=== PATIENT | female | born 1940 | race Caucasian/White ===

== ENCOUNTER → 2017-07-03 | Day surgery (SDC) | payer OTHER ==
--- NOTE | 2017-07-04 15:59 | PATH ---
Surgical Pathology Report Patient Name: MIMI BARRIOS [facility]. Rec. #: [id number] /Age/Gender: 1940 (Age: 77) / F Account: [id number] Location: [facility] Taken: 07/03/2017 Received: 07/03/2017 Reported: 07/04/2017 Physicians: Vandana Rodriguez M.D. Specimen(s) Received A: RIGHT BREAST SPECIMEN WITH CALCIFICATIONS B: RIGHT BREAST SPECIMEN WITHOUT CALCIFICATIONS Clinical History Nonpalpable lesion Mammographic findings: Microcalcification, suspicious Final Diagnosis A. BREAST, RIGHT, WITH CALCIFICATIONS, STEREOTACTIC BIOPSY: ATYPICAL DUCTAL HYPERPLASIA (ADH) AND FIBROCYSTIC CHANGES INCLUDING CYSTIC APOCRINE METAPLASIA AND USUAL DUCTAL HYPERPLASIA (UDH) WITH ASSOCIATED CALCIFICATIONS. B. BREAST, RIGHT, WITHOUT CALCIFICATIONS, STEREOTACTIC BIOPSY: BENIGN BREAST TISSUE SHOWING FIBROCYSTIC CHANGES INCLUDING CYSTIC APOCRINE METAPLASIA AND USUAL DUCTAL HYPERPLASIA (UDH). Electronically Signed Shelley Alva M.D. Gross Description A. Received in formalin labeled "right breast with calcifications," is a 1.5 x 1.2 x 0.2 cm aggregate of multiple booth-yellow, irregular to cylindrical portions of fibroadipose tissue. The formalin is filtered and the specimen is entirely submitted in one cassette. B. Received in formalin labeled "right breast without calcifications," is a 1.3 x 1.2 x 0.2 cm aggregate of multiple booth-yellow, irregular to cylindrical portions of fibroadipose tissue. The formalin is filtered and the specimen is entirely submitted in one cassette. Time to formalin fixation: 5 minutes Total formalin fixation time: Approximately 6 hours. /07/03/2017 saudi07/03/2017
== END | disposition home or self-care (01) ==
LOC: FMAMMOTONE 11:02
PROVIDERS: ATTEND Surgery Surgical Oncology
PROC: 0HBT3ZX Excision of Right Breast, Percutaneous Approach, Diagnostic (ICD-10-PCS; principal; 2017-07-03)
DX: N60.11 Diffuse cystic mastopathy of right breast (principal); N60.81 Other benign mammary dysplasias of right breast; N60.91 Unspecified benign mammary dysplasia of right breast; R92.1 Mammographic calcification found on diagnostic imaging of breast
CPT/HCPCS: 19081; 87899; A4648

== ENCOUNTER 2017-07-24 11:12 | Day surgery (SDC) | payer OTHER ==
--- NOTE | 2017-07-18 15:18 | HP ---
Admitting History and Physical - Primary Care Physician PCP: Glenroy Gonzales - Admission Chief Complaint: Right breast atypia History of Present Illness: 76 year old female with family H/O breast cancer who was found to have right breast calcifications upper outer aspect 11/2016 and follow up right breast diagnostic 05/2017 showed increasing calcifications. 06/2017 stereotactic core biopsy right calcifications showed ADH History Source: Patient Limitations to Obtaining History: No Limitations - Past Medical History Cardiovascular: Yes: Deep Vein Thrombosis (2014 was on xeralto for 3 yrs), HTN, Hyperlipdemia Rheumatology: Yes: Gout - Past Surgical History Additional Past Surgical History: melanoma back excision and squamous cell legbunionectomy hammer toe repair' left lower extremity venous reflux surgery - Smoking History Smoking history: Former smoker Have you smoked in the past 12 months: No If you are a former smoker, when did you quit?: 40 years ago Home Medications - Allergies Allergies/Adverse Reactions: Allergies Allergy/AdvReac Type Severity Reaction Status Date / Time No Known Allergies Allergy Verified 03/17/17 12:21 - Home Medications Home Medications: Ambulatory Orders Atenolol [Tenormin -] 1 tab PO DAILY 03/17/17 Colchicine 1 tab PO DAILY 03/17/17 Cyclosporine [Restasis] 1 drop OU BID 03/17/17 Ramipril 1 tab PO DAILY 03/17/17 Rivaroxaban [Xarelto -] 1 tab PO DAILY 03/17/17 Rosuvastatin Calcium [Crestor] 1 tab PO DAILY 03/17/17 Tenoretic 50 Tablet 1 tab PO DAILY 03/17/17 Family Disease History - Family Disease History Family Disease History: CA: Brother (bone ca 57) Other Family History: mat cousin breast ca 59 Physical Examination Constitutional: Yes: Well Nourished Breast(s): Yes: Other (C ptotic cup no palpable masses or adenopathy post bx changes right breast) Problem List - Problems (1) Atypical ductal hyperplasia of right breast Code(s): N60.91 - UNSPECIFIED BENIGN MAMMARY DYSPLASIA OF RIGHT BREAST Assessment/Plan Right breast wide excision with mammogram needle localization
[2017-07-23 20:10] VITALS: BMI 33.4
[2017-07-24] MEDS ORDERED: fentaNYL CITRATE 250 MCG/5 ML VIAL ONE (14:12)
[2017-07-24] MEDS ORDERED: MIDAZOLAM HCL 2 MG/2 ML SINGLE DOSE VIAL ONE ×2 (14:12→15:03)
[2017-07-24] MEDS ORDERED: LIDOCAINE HCL 1%, 10 MG/ML (20ML VIAL) ONE (14:39)
[2017-07-24] MEDS ORDERED: BUPIVACAINE HCL/PF 0.25% (2.5MG/ML) 10 ML VIAL ONE (14:39)
[2017-07-24] MEDS ORDERED: ONDANSETRON 4 MG/2 ML VIAL IVPUSH PRN (14:52)
[2017-07-24] MEDS ORDERED: KETOROLAC TROMETHAMINE 30 MG/1 ML VIAL IVPUSH ONE (15:00)
[2017-07-24] MEDS ORDERED: DEXTROSE 5%-0.45% SALINE 1,000 ML IV SCH (15:00)
[2017-07-24] MEDS ORDERED: PROPOFOL 20 ML ONE (15:03)
[2017-07-24] MEDS ORDERED: LIDOCAINE HCL/PF 2% SDV 5ML VIAL ONE (15:03)
[2017-07-24] MEDS ORDERED: LIDOCAINE HCL 1%, 10 MG/ML (50 mL VIAL) IJ ONE ×2 (15:23)
[2017-07-24] MEDS ORDERED: KETOROLAC TROMETHAMINE 30 MG/1 ML VIAL ONE (15:51)
[2017-07-24] MEDS ORDERED: BUPIVACAINE HCL/PF 0.25% (2.5MG/ML) 10 ML VIAL IJ ONE (16:03)
[2017-07-24] MEDS ORDERED: oxyCODONE HCL 5 MG TABLET PO PRN (16:21)
[2017-07-24] MEDS ORDERED: LACTATED RINGERS SOLUTION 1,000 ML IV SCH (16:30)
[2017-07-24 17:01] VITALS: TEMP 98.5
[2017-07-24 18:09] VITALS: BP 101/53; PULSE 68
--- NOTE | 2017-07-25 08:36 | OP ---
DATE OF OPERATION: 07/24/2017 PREOPERATIVE DIAGNOSIS: Right breast atypical duct hyperplasia. POSTOPERATIVE DIAGNOSIS: Right breast atypical duct hyperplasia, await permanent section. PROCEDURE: Right breast wide excision with mammographic needle localization. ANESTHESIA: General laryngeal mask airway anesthesia. PRIMARY SURGEON: Carlos Gonzales MD PURCHASE REQUEST EDITOR: TITI Gutierrez COMPLICATIONS: There were no complications. INDICATIONS: Briefly, the patient is a 77-year-old postmenopausal white female of [place] heritage. She underwent a mammography showing some increasing calcifications in the upper outer aspect of the right breast and underwent a stereotactic biopsy on July 03, 2017, showing some atypical duct hyperplasia. Wide excision with mammographic needle localization was recommended. . She was brought in for the procedure on July 24, 2017, and underwent a mammographic needle localization in Radiology and was brought up to the holding area at [facility]. In the holding area, site verification was made and informed consent was obtained. DESCRIPTION OF PROCEDURE: She was brought into the operating room and laid on the OR table in the supine position. Venodynes were placed on the lower extremities prior to induction. She did not received any IV antibiotics given the small nature of the excision. She underwent general laryngeal mask airway anesthesia. The right breast was sterilely prepped and draped in the usual fashion with a wire prepped in the field. Lidocaine 1% was given underneath the wide excision region in the upper outer aspect of the right breast, and a curvilinear incision was made and dissection was undertaken around the breast tissue in the upper outer aspect of the right breast with the tissue completely removed from around the wire. The specimen was removed and oriented with the long-lateral short-superior suture, and specimen radiograph showed removal of the clip in question. It was placed in formalin and sent to Pathology as specimen. Hemostasis was achieved. The breast parenchyma was then reapproximated using 2-0 plain suture. The skin was closed using interrupted 3-0 deep dermal Vicryl suture and a running 4-0 subcuticular Biosyn suture. Mastisol and Steri-Strips were applied over the wound with a compressive dressing placed over this. The patient had the laryngeal mask airway tube removed at the end of the case and was recovered in the post-anesthesia care unit. The patient will be discharged home the same day once her discharge criteria are met. She is to follow up in the office in one week for a formal wound pathology check. All sponge and needle counts were correct at the end of the case, and estimated blood loss was minimal. CARLOS GONZALES M.D. [id number]
--- NOTE | 2017-07-30 14:36 | PATH ---
Surgical Pathology Report Patient Name: MIMI BARRIOS [facility]. Rec. #: [id number] /Age/Gender: 1940 (Age: 77) / F Account: [id number] Location: AMBULATORY SURG Taken: 07/24/2017 Received: 07/25/2017 Reported: 07/30/2017 Physicians: Glenroy Gonzales M.D. Specimen(s) Received RIGHT BREAST WIDE EXCISION Clinical History Atypia Mammographic findings: Microcalcification Ultrasound findings: Probably benign Final Diagnosis BREAST, RIGHT, WIDE EXCISION: ATYPICAL DUCTAL HYPERPLASIA IN A BACKGROUND OF FIBROCYSTIC CHANGES INCLUDING STROMAL FIBROSIS, MICROCYSTS, APOCRINE METAPLASIA, ADENOSIS AND ASSOCIATED MICROCALCIFICATIONS. PRIOR BIOPSY SITE CHANGES PRESENT. Electronically Signed Sidra Gamez M.D. Gross Description Received fresh on [employer], labeled "right breast wide excision," is a 5.0 x 4.4 x 1.7 cm. booth-yellow, irregular, portion of fibroadipose tissue with a needle localization wire present. There is a short suture marking the superior aspect and a long suture marking the lateral aspect, per the surgeon. There is no skin or nipple present. The specimen is inked as follows: superior and lateral blue; inferior green; medial yellow; anterior red; deep black. The specimen is serially sectioned from superior to inferior. Sectioning reveals abundant firm fibrous tissue along the medial aspect of the specimen. There is a previous biopsy site containing a gleason metallic clip identified. No definitive mass is identified. Line Tender Flakeboard sections are submitted in 11 cassettes as follows: 1-8-fibrous tissue sequentially submitted from superior to inferior with the biopsy clip in cassette 2 (each with medial, anterior and deep margins); 9-superior margin; 10-inferior margin; 11-lateral margin. Total formalin fixation time: Approximately 26 hours 07/25/201707/25/2017
== END 2017-07-24 17:45 | disposition home or self-care (01) ==
LOC: JASUSAT 11:12
PROVIDERS: ATTEND Surgery Surgical Oncology
PROC: 0HBT0ZX Excision of Right Breast, Open Approach, Diagnostic (ICD-10-PCS; principal; 2017-07-24 14:00)
DX: N60.11 Diffuse cystic mastopathy of right breast (principal); N60.21 Fibroadenosis of right breast
CPT/HCPCS: 19281; 71046-TC-FY; 88307-TC; 94760